=== PATIENT | male | born 1965 | race Caucasian/White ===

== ENCOUNTER 2016-11-11 18:14 | Emergency (ER) | payer OTHER ==
[2016-11-11 18:20] VITALS: BP 138/85; BMI 21.8
[2016-11-11] MEDS ORDERED: XYLOCAINE 1% and EPINEPHRINE 1:100,000 ONE (18:22)
--- NOTE | 2016-11-11 18:57 | DR.LACERAT ---
HPI - Time Seen Time seen: 18:45 - Primary Care Physician Primary Care Physician: karl - Complaints Chief Complaint Doctors Comments: laceration 6cm Chief Complaint:: pt fell and has laceration to rt foreram appox 6 inches - Reviewed Nurses Notes Reviewed: Yes - Source History Provided: Patient - Mode of Arrival Mode of Arrival: Ambulatory - Timing Onset of Chief Complaint: 11/11/16 - Context Mechanism: Blunt Trauma, Fall - Severity Pain Severity: Moderate Bleeding:: Controlled - Associated Signs and Symptoms Associated Signs and Symptoms: None PMH - PMH Past Medical History: No Past Surgical History: No - Family History History of Family Medical Conditions: No - Social History Alcohol Use: Occasionally Do you use any recreational Drugs:: No Lives With: Family Lives Where: Home - infectious screening In the last 2 months have you had wt loss of >10#?: NO Have you had fever, night sweats or hemotysis?: No Have you traveled outside the country in the last 6 months?: No Isolation: Standard ROS - Review of Systems Constitutional: No Symptoms Reported Eyes: No Symptoms Reported ENTM: No Symptoms Reported Respiratoy: No Symptoms Reported Cardiovascular: No Symptoms Reported Gastrointestinal/Abdominal: No Symptoms Reported Genitourinary: No Symptoms Reported Neurological: No Symptoms Reported Musculoskeletal: No Symptoms Reported Integumentary: Wound (right forearm) Hematologic/Lymphatic: No Symptoms Reported Endocrine: No Symptoms Reported Psychiatric: No Symptoms Reported PE - Vital Signs Vitals: Temperature 98.6 F Pulse Rate 89 Respiratory Rate 18 Blood Pressure 138/85 O2 Sat by Pulse Oximetry 100 - General Limitations: No Limitations General Appearance: Alert, In No Apparent Distress - Head Head Exam: Normal Inspection - Eyes Eye exam: Normal Appearance, EOMI. negative: Scleral Icterus, Conjunctival Injection - Neck Neck Exam: Normal Inspection, Full ROM, Trachea Midline - Respiratory Respiratory Exam: negative: Accessory Muscle Use, Respiratory Distress - Extremities Extremities Exam: Normal Inspection, Full ROM, Tenderness (right forearm) - Back Back Exam: Normal Inspection - Neurologic Neurological Exam: Alert, Oriented X3, CN II-XII Intact - Psychiatric Psychiatric Exam: Normal Affect - Skin Skin Exam: Normal Color. negative: Intact (6cm cut to right ) Type of Lesion: Laceration (6cm right forearm) Procedures - Incision and Drainage I & D Procedure: betadine prep - Laceration/Wound Repair Right Arm Wound Length (cm): 6 Wound's Depth, Shape: Flap Wound Explored: clean Betadine Prep?: Yes Anesthesia: 1% Lidocaine w/ Epi Volume Anesthetic (ccs): 9 Wound Repaired With: sutures Suture Size/Type: 4:0, [place] Number of Sutures: 14 Layer Closure?: No - Diagnosis Discharge Problem: Laceration - Discharge Plan Condition: Stable Prescriptions: Amoxicillin [AMOXIL CAP 500 MG *] 500 mg PO TID #30 cap Ibuprofen [MOTRIN TAB 800 MG *] 800 mg PO Q8H PRN #30 tab PRN Reason: Pain/Inflammation - Follow ups/Referrals Follow ups/Referrals: Jersey Noe [Primary Care Provider] - 3 days - Instructions
[2016-11-11] MEDS ORDERED: NORCO 5/325 MG TAB PO ONE (18:59)
[2016-11-11] MEDS ORDERED: NORCO 5/325 MG TAB ONE (19:08)
== END 2016-11-11 19:30 | disposition home or self-care (01) ==
LOC: ER 18:28
PROC: 0XQ80ZZ Repair Right Upper Arm, Open Approach (ICD-10-PCS; principal; 2016-11-11)
DX: S51.811A Laceration without foreign body of right forearm, initial encounter (principal); W19.XXXA Unspecified fall, initial encounter; Y92.9 Unspecified place or not applicable
CPT/HCPCS: 12002; 99282; 99283; J2001